=== PATIENT | female | born 1950 | race Caucasian/White ===

== ENCOUNTER 2016-12-31 09:02 | Outpatient (CLI) | payer OTHER, MEDICARE ==
[~2016-12-31 09:02] MED LIST: ACETAMINOPHEN500 MG PO; DILTIAZEM HCL120 M2 PO; GLIMEPIRIDE1 MG PO; LEVOTHYROXINE100 MCG PO; LOSARTAN POTASS1 TA1 PO; METFORMIN HCL850 MG PO
--- NOTE | 2016-12-31 10:32 | DIAGNOSTIC IMAGING REPORT ---
PROCEDURE: US ABDOMEN ULTRASOUND-COMPLETE INDICATION: HX HEP C TECHNIQUE: Chang scale and color Doppler sonographic images of the abdomen were obtained. COMPARISON: None. FINDINGS: Liver measures 18.6 cm with mildly increased echogenicity. No evidence of a focal mass or ascites. Cholecystectomy. Normal CBD (5.4 mm). Normal spleen and pancreas. Aorta and IVC are patent. Normal hepatopetal flow. Normal kidneys. Right kidney measures 11.7 cm and left kidney 11.3 cm. IMPRESSION: 1. Mildly echogenic liver which may be secondary to patient's history of hepatitis C. No focal mass or ascites 2. Cholecystectomy
--- NOTE | 2016-12-31 12:02 | DIAGNOSTIC IMAGING REPORT ---
PROCEDURE: DEXA BONE DENSITY STUDY CLINICAL INDICATION: Screening for osteoporosis, history of wrist fracture from trauma, taking vitamin D supplementation. COMPARISON: None. FINDINGS: LUMBAR SPINE: Bone mineral density 0.850 g/cm2, T score -1.8, osteopenia . LEFT HIP: Bone mineral density 0.941 g/cm2, T score 0.0, normal. LEFT FEMORAL NECK: Bone mineral density 0.730 g/cm2, T score -1.1, osteopenia FRACTURE RISK CALCULATION ( when applicable): 10-year fracture risk of a major osteoporotic fracture 8.3% and of a hip fracture 0.7% (T score greater or equal to -1.0 to: NORMAL) (T score from -1.1 to -2.4: OSTEOPENIA) (T score less than or equal to -2.5: OSTEOPOROSIS) IMPRESSION: 1. Osteopenia of the lumbar spine and left femoral neck mildly elevates the patient's 10-year fracture risk as described.
--- NOTE | 2016-12-31 15:39 | DIAGNOSTIC IMAGING REPORT ---
PROCEDURE: MG BILATERAL SCREENING W/CAD INDICATION: Screening, personal history of benign right breast lumpectomy TECHNIQUE: Standard CC and MLO views bilaterally. Computer aided detection was used. COMPARISON: None available although the patient reports history of prior mammograms from [facility]. FINDINGS: Moderately dense heterogeneous fibroglandular tissue is present bilaterally. Small cluster of probable dystrophic microcalcifications in the 6 o'clock position of the anterior left breast. No suspicious densities architectural distortion. IMPRESSION: 1. Indeterminate microcalcifications in the left breast. Comparison to prior mammograms is recommended. If this is a new finding, further evaluation with spot magnification and direct lateral mammogram is recommended. 2. The patient will be contacted. RESULT CODE: 0- Incomplete; needs additional evaluation. A. A negative report should not delay biopsy if a dominant or clinically suspicious mass is present. 10-15% of cancers are not identified by x-ray. B. A negative report may reinforce clinical impression. C. Adenosis and dense breasts may obscure an underlying neoplasm. D. False positive reports average 6-10%. E.. A yearly screening mammogram is recommended. A reminder letter will be scheduled.
== END 2016-12-31 23:00 ==
LOC: US SRH 09:02
DX: Z12.31 Encounter for screening mammogram for malignant neoplasm of breast (principal); Z13.820 Encounter for screening for osteoporosis; M85.89 Other specified disorders of bone density and structure, multiple sites; S62.109D Fracture of unspecified carpal bone, unspecified wrist, subsequent encounter for fracture with routine healing